=== PATIENT | female | born 1975 | race Caucasian/White ===

== ENCOUNTER 2016-09-04 20:24 | Emergency (ER) | payer MEDICAID, OTHER ==
[2016-09-04 20:54] VITALS: BP 133/88
[2016-09-04] MEDS ORDERED: diphenhydrAMINE 50 MG/ML SDV IVPUSH ONE (21:18)
[2016-09-04] MEDS ORDERED: Sodium Chloride 0.9% 1,000 ML IV SCH (21:30)
--- NOTE | 2016-09-04 22:06 | EDM.PDOC ---
ED HPI GENERAL MEDICAL PROBLEM - General Chief Complaint: Allergic Reaction Stated Complaint: SWOLLEN TONGUE/TROUBLE BREATHING Time Seen by Provider: 09/04/16 21:01 Source of Information: Reports: Patient History Limitations: Reports: No Limitations - History of Present Illness INITIAL COMMENTS - FREE TEXT/NARRATIVE: allergic reaction; this is a 40 year old female presents to ER with and children. Reports was starting her 6pm shift at the [employer], where she is employed, at 6:10pm had a sudden onset of tongue swelling, shortness of breath, eyes were burning, pruritus. She told they had a activity at the other end of the [employer], where they were popping balloons. She was told they were latex free. She has a severe allergy to latex. She continue to feel worsen symptoms of tongue swelling, pruritus, she left work and came directly to ER. Onset: Sudden Onset Date: 09/04/16 Onset Time: 18:10 Duration: Constant Location: Reports: Generalized Quality: Reports: Same as Previous Episode Severity: Moderate Improves with: Reports: Medication Worsens with: Reports: None Context: Reports: Other (exposure to dust of popped balloons.) Associated Symptoms: Reports: Cough, Shortness of Breath, Other (tongue swollen) - Related Data Allergies Allergy/AdvReac Type Severity Reaction Status Date / Time latex Allergy Severe Airway Verified 09/04/16 20:46 Tightness ceresin [From Eucerin] Allergy Rash Verified 09/04/16 20:46 emollient combination no.[id number] Allergy Rash Verified 09/04/16 20:46 [From Eucerin] hydrocodone bitartrate Allergy Hives Verified 09/04/16 20:46 [From Vicodin] isopropyl myristate Allergy Rash Verified 09/04/16 20:46 [From Eucerin] metronidazole [From Flagyl] Allergy Hives Verified 09/04/16 20:46 mineral oil [From Eucerin] Allergy Rash Verified 09/04/16 20:46 petrolatum,white Allergy Rash Verified 09/04/16 20:46 [From Eucerin] codeine AdvReac Hallucinati Verified 09/04/16 20:46 ons meperidine HCl [From Demerol] AdvReac Shaking Verified 09/04/16 20:46 mometasone furoate AdvReac Cough Verified 09/04/16 20:46 [From Nasonex] Home Meds: Home Meds Acetaminophen [Tylenol Extra Strength] 500 mg PO ASDIRECTED PRN 10/23/15 [ History] Sertraline [Zoloft] 25 mg PO DAILY 06/07/16 [History] Past Medical History HEENT History: Reports: Sinusitis Respiratory History: Reports: Asthma, Bronchitis, Recurrent Other Respiratory History: excerise indued asthma [employer] History: Reports: Other OB/BYN History: h/o c-sections x4 Musculoskeletal History: Reports: Back Pain, Chronic Neurological History: Reports: Concussion Psychiatric History: Reports: Anxiety, Depression, Mood Swings, Panic Attack Endocrine/Metabolic History: Reports: Hypothyroidism Other Endocrine/Metabolic History: borderline hypothyroid Hematologic History: Reports: Anemia Dermatologic History: Reports: Eczema - Infectious Disease History Infectious Disease History: Reports: Chicken Pox - Past Surgical History HEENT Surgical History: Reports: Oral Surgery GI Surgical History: Reports: Appendectomy Female Surgical History: Reports: Section, Salpingo-Oophorectomy Social & Family History - Tobacco Use Smoking Status *Q: Never Smoker Used Tobacco, but Quit: Yes Month Tobacco Last Used: may Second Hand Smoke Exposure: No - Caffeine Use Caffeine Use: Reports: Coffee, Soda - Recreational Drug Use Recreational Drug Use: No - Living Situation & Occupation Living situation: Reports: , with Family Occupation: Employed (employed as Nurse at [employer] in [place], [place]. lives with and 5 children, ages 8 months to 20 years.) ED ROS ALLERGIC REACTION - Review of Systems Review Of Systems: See Below Constitutional: Reports: No Symptoms HEENT: Reports: Throat Swelling, Other (eyes burning, tongue feels swollen) Respiratory: Reports: Shortness of Breath, Cough Cardiovascular: Reports: No Symptoms Endocrine: Reports: No Symptoms GI/Abdominal: Reports: No Symptoms : Reports: No Symptoms Musculoskeletal: Reports: No Symptoms Skin: Reports: Pruritis Neurological: Reports: No Symptoms Psychiatric: Reports: No Symptoms Hematologic/Lymphatic: Reports: No Symptoms Immunologic: Reports: Anaphylaxis, Other (multi allergies; latex, ceresin, emollient no. 33, nasonex, flagyl, mineral oil) ED EXAM GENERAL NO PERIP PULSE - Physical Exam Exam: See Below Exam Limited By: No Limitations General Appearance: Alert, WD/WN, No Apparent Distress Eye Exam: Bilateral Eye: Normal Inspection Ears: Normal External Exam, Normal Canal, Hearing Grossly Normal, Normal TMs Nose: Normal Inspection, Normal Mucosa, No Blood Throat/Mouth: Normal Inspection, Normal Lips, Normal Teeth, Normal Gums, Normal Oropharynx, Normal Voice, No Airway Compromise Head: Atraumatic, Normocephalic Neck: Normal Inspection, Supple, Non-Tender, Full Range of Motion Respiratory/Chest: No Respiratory Distress, Lungs Clear, Normal Breath Sounds, No Accessory Muscle Use, Chest Non-Tender Cardiovascular: Normal Peripheral Pulses, Regular Rate, Rhythm, No Edema, No JVD , No Murmur GI/Abdominal: Normal Bowel Sounds, Soft, Non-Tender (Female) Exam: Deferred Rectal (Female) Exam: Deferred Back Exam: Normal Inspection, Full Range of Motion, NT Extremities: Normal Inspection, Normal Range of Motion, Non-Tender, Normal Capillary Refill, No Pedal Edema Neurological: Alert, Oriented, CN II-XII Intact, Normal Cognition, Normal Gait, Normal Reflexes, No Motor/Sensory Deficits Psychiatric: Normal Affect, Normal Mood Skin Exam: Warm, Dry, Intact, Normal Color, No Rash, Other (face flushed) Lymphatic: No Adenopathy Course - Vital Signs Last Recorded V/S: Last Vital Signs Temp 36.5 C 09/04/16 20:48 Pulse 94 09/04/16 20:48 Resp 16 09/04/16 20:48 BP 133/88 09/04/16 20:48 Pulse Ox 97 09/04/16 20:48 - Orders/Labs/Meds Meds: Medications Discontinued Medications Generic Name Dose Route Start Last Admin Trade Name Freq PRN Reason Stop Dose Admin Diphenhydramine HCl 50 mg 09/04/16 21:18 09/04/16 21:45 Benadryl IVPUSH 09/04/16 21:19 50 mg ONETIME ONE Administration Sodium Chloride 1,000 mls @ 999 mls/hr 09/04/16 21:30 09/04/16 21:45 Normal Saline IV 999 mls/hr ASDIRECTED KOFFI Administration Ranitidine HCl 150 mg 09/04/16 21:30 09/04/16 21:46 Zantac PO 150 mg DAILY KOFFI Administration - Re-Assessments/Exams Free Text/Narrative Re-Assessment/Exam: 09/04/16 23:11 given one liter of Normal Saline and benadryl 50mg iv, zantac 150mg po monitored for 3 hours symptoms resolved with benadryl, feeling much better, ready to go home. Sister to transport home Departure - Departure Time of Disposition: 23:03 Disposition: Home, Self-Care 01 Condition: good Clinical Impression: Allergic reaction to inhaled dust - Discharge Information Instructions: Allergies, [id number] Referrals: PCP,None [Primary Care Provider] - Forms: ED Department Discharge Care Plan Goals: allergic reaction to inhaled dust from popped balloons -continue benadryl 25 mg every 4 hours for next 2 days -start Zantac 150mg po every 12 hours for 7 days -avoid balloons return to ER if symptoms return,or has any nausea, vomiting, cough, shortness of breath, throat pain or swelling or any concerns. - Problem List & Annotations (1) Allergic reaction to inhaled dust SNOMED Code(s): 51275942, 408078599 Code(s): J30.89 - OTHER ALLERGIC RHINITIS Status: Acute Priority: High - Problem List Review Problem List Initiated/Reviewed/Updated: Yes - Assessment/Plan Plan: allergic reaction to inhaled dust from popped balloons -continue benadryl 25 mg every 4 hours for next 2 days -start Zantac 150mg po every 12 hours for 7 days -avoid balloons return to ER if symptoms return,or has any nausea, vomiting, cough, shortness of breath, throat pain or swelling or any concerns.
== END 2016-09-04 23:03 | disposition home or self-care (01) ==
LOC: JP.ED 20:24
DX: J30.89 Other allergic rhinitis (principal); Z91.040 Latex allergy status; Z88.8 Allergy status to other drugs, medicaments and biological substances; Z79.899 Other long term (current) drug therapy; Z90.49 Acquired absence of other specified parts of digestive tract; Z98.890 Other specified postprocedural states
CPT/HCPCS: 96361; 96374; 99283; 99284; A9270; J1200; J7040